=== PATIENT | female | born 1975 | race Caucasian/White ===

== ENCOUNTER 2016-08-15 14:13 | Emergency (ER) | payer BC ==
[2016-08-15 14:32] VITALS: BP 145/75
[2016-08-15] MEDS ORDERED: Ketorolac 60 MG/2 ML SDV IM ONE (14:51)
--- NOTE | 2016-08-15 14:54 | EDM.PDOC ---
ED HPI GENERAL MEDICAL PROBLEM - General Chief Complaint: Lower Extremity Injury/Pain Stated Complaint: RIGHT FOOT PAIN Time Seen by Provider: 08/15/16 14:20 Source of Information: Reports: Patient History Limitations: Reports: No Limitations - History of Present Illness INITIAL COMMENTS - FREE TEXT/NARRATIVE: The patient is a 40-year-old female who presents to the ED complaining of right lateral foot pain with swelling. Patient states last night when she went to bed she had some pain to this area with no known precipitating factors. States she felt like her toes needed to be cracked. Throughout the evening the pain increased. This morning the pain has worsened to the point where she has difficulty weightbearing. Swelling noted to the dorsal aspect of the foot with increased pain on palpation. Again there has been no known precipitating factors. She's had similar symptoms in the past approximately 8 years ago and 12 years ago. Symptoms resolved on their own accord with minimal treatment. She denies any history of gout, increased red meat consumption, increased alcohol consumption, or other pertinent history. She has no prior history of injuring affected foot. 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: Reports: Other (see below) (none stated) Right Feet Pain Score (Numeric/FACES): 4 - Related Data Allergies Allergy/AdvReac Type Severity Reaction Status Date / Time No Known Allergies Allergy Verified 08/15/16 14:29 Home Meds: Home Meds Docusate Sodium [Dulcolax Stool Softener] 1 tab PO DAILY 01/02/16 [History] Hydrochlorothiazide 1 tab PO DAILY 01/02/16 [History] Lisinopril 1 tab PO DAILY 01/02/16 [History] Omeprazole 40 mg PO DAILY 01/02/16 [History] buPROPion HCl [Wellbutrin Xl] 1 tab PO DAILY 01/02/16 [History] metFORMIN HCl [Metformin HCl] 1 tab PO BID 01/02/16 [History] Past Medical History Cardiovascular History: Reports: High Cholesterol, Hypertension Gastrointestinal History: Reports: GERD Endocrine/Metabolic History: Reports: Diabetes, Type II Social & Family History - Tobacco Use Smoking Status *Q: Never Smoker - Caffeine Use Caffeine Use: Reports: Soda - Recreational Drug Use Recreational Drug Use: No Review of Systems - Review of Systems Review Of Systems: See Below Constitutional: Reports: No Symptoms Respiratory: Reports: No Symptoms Cardiovascular: Reports: No Symptoms Neurological: Reports: Difficulty Walking (secondary to right foot pain). Denies: Numbness, Tingling Trauma Exam - Physical Exam Exam: See Below Exam Limited By: No Limitations General Appearance: Reports: Alert, WD/WN, No Apparent Distress Ears: Reports: Hearing Grossly Normal Nose: Reports: Normal Inspection Throat/Mouth: Reports: Normal Voice, No Airway Compromise Neck: Reports: Normal Inspection Respiratory Exam: Reports: No Respiratory Distress, Lungs Clear, Normal Breath Sounds Cardiovascular: Reports: Normal Peripheral Pulses, Regular Rate, Rhythm Extremities: Other (mild swelling noted to the dorsal aspect of the right foot. Pain with palpation of the 4th and 5th metatarsal. Pin point pain noted to the sole of the foot along 4th and 5th metatarsal. No sensory/motor deficits noted. DP/PT pulses intact equal bilaterally. ) Neurologic: Reports: No Motor/Sensory Deficits, Alert, Normal Mood/Affect, Oriented x 3 Skin: Reports: Normal Color, Warm/Dry Course - Vital Signs Last Recorded V/S: Last Vital Signs Temp 98.1 F 08/15/16 14:25 Pulse 99 08/15/16 14:25 Resp 16 08/15/16 14:25 BP 145/75 H 08/15/16 14:32 Pulse Ox 100 08/15/16 14:25 - Orders/Labs/Meds Orders: Active Orders 24 hr Category Date Time Status Foot Comp Min 3V Rt [CR] Stat Exams 08/15/16 14:51 Taken DME for Discharge [COMM] Stat Oth 08/15/16 16:47 Ordered Meds: Medications Discontinued Medications Generic Name Dose Route Start Last Admin Trade Name Yao PRN Reason Stop Dose Admin Ketorolac Tromethamine 60 mg 08/15/16 14:51 08/15/16 15:06 Toradol IM 08/15/16 14:52 60 mg ONETIME ONE Administration - Radiology Interpretation Free Text/Narrative:: X-ray reviewed with Dr. Villalobos no acute bony abnormalities noted. Will discharge home with instructions, crutches, and paul wrap. Departure - Departure Time of Disposition: 16:47 Disposition: Home, Self-Care 01 Condition: good Clinical Impression: Sprain of foot, right Qualifiers: Encounter type: initial encounter Qualified Code(s): S93.601A - Unspecified sprain of right foot, initial encounter - Discharge Information Instructions: Foot Sprain Referrals: Sarah Ivy PA-C [Primary Care Provider] - Michael Grossman MD [Physician] - Bran Bustillos MD [Physician] - Forms: ED Department Discharge Additional Instructions: NO acute bony abnormalities noted on x-ray of the foot. Will have you utilize crutches for the next 3 to5 days. No weightbearing for the first three days advancing as tolerated. Elevate when able to reduce swelling and pain. Utilize ice to the affected area 4-6 times daily, 20 minutes in duration, do not apply ice to the skin. Utilize Tylenol and ibuprofen and alternate fashion for pain. Refrain from any activities that cause worsening pain. Followup with orthopedic surgeon or optometry assistant of your choice if symptoms are not dressing improved over the next 7-10 days. Return to the ED as needed for any new or worsening symptoms. - My Orders Last 24 Hours: My Active Orders 08/15/16 14:51 Foot Comp Min 3V Rt [CR] Stat 08/15/16 16:47 DME for Discharge [COMM] Stat - Assessment/Plan Last 24 Hours: My Active Orders 08/15/16 14:51 Foot Comp Min 3V Rt [CR] Stat 08/15/16 16:47 DME for Discharge [COMM] Stat
--- NOTE | 2016-08-17 07:37 | CR ---
Right foot: Four views of the right foot were obtained. Comparison: No previous foot study. Plantar spur is seen. Minimal spur noted at the attachment of the Achilles tendon to the calcaneus. Minimal irregularity is seen within the base of the proximal phalanx of the fifth digit. This is most likely projectional but please correlate that patient has no symptoms of fracture to this digit. No additional bony abnormality is seen other than small bony density off the medial malleolus compatible with old injury. Impression: 1. Findings as described above. Diagnostic code #3
== END 2016-08-15 17:05 | disposition home or self-care (01) ==
LOC: JD.ED 14:13
DX: S93.601A Unspecified sprain of right foot, initial encounter (principal); Z79.899 Other long term (current) drug therapy; X58.XXXA Exposure to other specified factors, initial encounter
CPT/HCPCS: 73630; 96372; 99284; J1885; 99283

== ENCOUNTER → 2017-05-21 | Day surgery (SDC) | payer BC ==
[~2017-05-21] MED LIST: Acetaminophen/HYDROcodone 325-5 MG Tab PO ONE; Ketorolac 30 MG/ML SDV IVPUSH PRN; Lactated Ringers 1,000 ML IV SCH; Lactated Ringers 1,000 ML ONE; Lidocaine 1% 4 ML ONE; Lidocaine 1% 50 ML MDV ONE; Lidocaine 1% with EPINEPHrine 1:100,000 20 ML MDV ONE; Lidocaine 1%/Sod Bicarbonate in NS 8.4% 1 ML Syringe IDERM PRN; Midazolam 1 MG/ML 2 ML SDV ONE; Ondansetron 4 MG/2 ML SDV ONE; Propofol 200 MG/20 ML SDV ONE; Sodium Chloride 0.9% 10 ML Syringe FLUSH PRN; fentaNYL 100 MCG/2 ML SDV ONE
--- NOTE | 2017-05-21 10:15 | PCM.PREANE ---
Preanesthetic Assessment - Anesthesia/Transfusion/Family Hx Anesthesia History: Prior Anesthesia Without Reaction Family History of Anesthesia Reaction: Yes (dad slow wake up) Transfusion History: No Prior Transfusion(s) - Review of Systems General: No Symptoms Pulmonary: No Symptoms Cardiovascular: No Symptoms Gastrointestinal: No Symptoms Neurological: No Symptoms Other: Reports: Diabetes - Physical Assessment NPO Status Date: 05/20/17 NPO Status Time: 00:00 Pulse: 75 O2 Sat by Pulse Oximetry: 97 Respiratory Rate: 16 Blood Pressure: 149/87 Temperature: 37.3 C Height: 1.65 m Weight: 114.7 kg ASA Class: 2 Mental Status: Alert & Oriented x3 Airway Class: Mallampati = 1 Dentition: Reports: Normal Dentition Thyro-Mental Finger Breadths: 2 Mouth Opening Finger Breadths: 3 ROM/Head Extension: Full Lungs: Clear to Auscultation, Normal Respiratory Effort Cardiovascular: Regular Rate, Regular Rhythm, No Murmurs - Lab Values: on chart - Allergies Allergies/Adverse Reactions: Allergies Allergy/AdvReac Type Severity Reaction Status Date / Time No Known Allergies Allergy Verified 08/15/16 14:29 - Blood Blood Available: No Product(s) Available: None - Anesthesia Plan Pre-Op Medication Ordered: None - Acknowledgements Anesthesia Type Planned: General Anesthesia Pt an Appropriate Candidate for the Planned Anesthesia: Yes Alternatives and Risks of Anesthesia Discussed w Pt/Guardian: Yes Pt/Guardian Understands and Agrees with Anesthesia Plan: Yes PreAnesthesia Questionnaire Cardiovascular History: Reports: High Cholesterol, Hypertension Gastrointestinal History: Reports: GERD Endocrine/Metabolic History: Reports: Diabetes, Type II - SUBSTANCE USE Smoking Status *Q: Never Smoker Tobacco Use Within Last Twelve Months: No Second Hand Smoke Exposure: No Days Per Week of Alcohol Use: 0 Number of Drinks Per Day: 0 Total Drinks Per Week: 0 Recreational Drug Use History: No - HOME MEDS Home Medications: Home Meds Docusate Sodium [Dulcolax Stool Softener] 1 tab PO DAILY 01/02/16 [History] Hydrochlorothiazide 1 tab PO DAILY 01/02/16 [History] Lisinopril 1 tab PO DAILY 01/02/16 [History] Omeprazole 40 mg PO DAILY 01/02/16 [History] buPROPion HCl [Wellbutrin Xl] 1 tab PO DAILY 01/02/16 [History] metFORMIN HCl [Metformin HCl] 1 tab PO BID 01/02/16 [History] - CURRENT (IN HOUSE) MEDS Current Meds: Current Medications Lactated Ringer's (Ringers, Lactated) 1,000 mls @ 125 mls/hr IV ASDIRECTED INDIRA Lidocaine/Sodium Bicarbonate (Buffered Lidocaine 1% In Ns 8.4%) 0.25 ml IDERM ONETIME PRN PRN Reason: Prior to IV Start Sodium Chloride (Saline Flush) 10 ml FLUSH ASDIRECTED PRN PRN Reason: Keep Vein Open
--- NOTE | 2017-05-21 12:35 | PCM.OPNOTE ---
- General Post-Op/Procedure Note Date of Surgery/Procedure: 05/21/17 Operative Procedure(s): left temporal artery bx. Pre Op Diagnosis: headache and elevated sed rate Post-Op Diagnosis: Same Anesthesia Technique: MAC Primary Surgeon: Stewart Carty EBL in mLs: 3 Complications: None Condition: Good
[2017-05-21] MEDS: fentaNYL 100 MCG/2 ML SDV IVPUSH ONE ×2 (12:40→13:25)
[2017-05-21 15:23] VITALS: BP 129/70
--- NOTE | 2017-05-24 11:56 | OR ---
DATE OF OPERATION: 05/21/2017 SURGEON: Stewart Carty MD PREOPERATIVE DIAGNOSIS: Elevated sedimentation rate and headache along the left. POSTOPERATIVE DIAGNOSIS: Elevated sedimentation rate and headache along the left. OPERATION PERFORMED: Left temporal artery biopsy done under IV sedation local anesthetic 1% Xylocaine without epinephrine. FINDINGS: Tortuous serpiginous temporal artery quite small on the left side. DESCRIPTION OF PROCEDURE: The patient taken to the operating room, placed in a supine position. The area in question on the left temporal area was Dopplered, hair was trimmed, and then it was cleansed with Betadine, draped off in a sterile fashion. 1% Xylocaine infiltrated in the skin over the temporal artery, and incision was made and carried down by sharp dissection through the fat, through the subcuticular tissue to the vein. The vein was identified. Under the vein was a temporal artery. The vein was taken down exposing the serpiginous temporal artery. This was dissected out and proximal and distal were clamped and cut and tied off. It was sent to pathology for analysis. The subcuticular tissue was then closed with interrupted 3-0 Vicryl suture and the skin with a running subdermal 4-0 Dexon suture. Steri-Strips sterile dressing placed. ESTIMATED BLOOD LOSS: 3 mL. ANESTHESIA: MMODAL /[id number]
== END | disposition home or self-care (01) ==
LOC: JD.SDS 09:22
PROVIDERS: ATTEND Surgery
DX: R70.0 Elevated erythrocyte sedimentation rate (principal); R51 Headache; D50.9 Iron deficiency anemia, unspecified; Z79.899 Other long term (current) drug therapy
CPT/HCPCS: 37609; 82962; A9270; J1885; J2250; J2405; J3010; J7120; J2704

== ENCOUNTER 2020-01-09 01:02 | Emergency (ER) | payer BC ==
[2020-01-09 01:45] VITALS: BP 150/81; PULSE 82
[2020-01-09] MEDS ORDERED: FLU VACC QS2020-21(6MOS UP)/PF 60 MCG/0.5 ML SYRINGE IM ONE (02:15)
[2020-01-09] MEDS ORDERED: Bupivacaine 0.5% 10 ML SDV INJECT ONE ×2 (02:36→04:21)
[2020-01-09] MEDS ORDERED: Lidocaine 1% with EPINEPHrine 1:100,000 20 ML MDV INJECT ONE ×2 (02:36→04:21)
--- NOTE | 2020-01-09 02:40 | EDM.PDOC ---
ED HPI GENERAL MEDICAL PROBLEM - General Chief Complaint: Genitourinary Problem Stated Complaint: POSS HEMROIDS Time Seen by Provider: 01/09/20 01:40 Source of Information: Reports: Patient History Limitations: Reports: No Limitations - History of Present Illness INITIAL COMMENTS - FREE TEXT/NARRATIVE: There was a delay in evaluating this patient due to a medical alert on another patient. Mrs. Israel is a pleasant 44-year-old woman who now presents the ED with a complaint of progressively worsening anal pain over the past 2 weeks. She states that she has tried Epson salts sitz baths, Preparation H, and [id number] analgesics, without significant relief. No recent fever or rectal bleeding. The patient states that she had similar symptoms about 4 years ago. Her doctor thought that she had an internal hemorrhoid, and she was taken to the operating room, however, her surgeon did not find an internal hemorrhoid. She states that they apparently did a biopsy, which returned negative. The cause of her pain was not found, but it eventually resolved. Here in the ED, the patient's initial BP is found to be modestly elevated at 150/81, otherwise, she is hemodynamically stable, afebrile, saturating 97% on room air. The patient states that she started her menses yesterday. Other than her anal pain, the patient denies having a recent fever, chills, sore throat, ear pain, nasal or sinus congestion, cough, dyspnea, chest pain, palpitations, nausea, vomiting, constipation, diarrhea, abdominal pain, urinary symptoms, recent weight gain or weight loss, recent bloody bowel movements or black bowel movements, recent joint aches, headaches, or rashes. The patient's PCP is JAIRO Marinelli. Rectal Pain Score (Numeric/FACES): 8 - Related Data Allergies Allergy/AdvReac Type Severity Reaction Status Date / Time No Known Allergies Allergy Verified 01/09/20 01:45 Home Meds: Home Meds Hydrochlorothiazide 1 tab PO DAILY 01/02/16 [History] Lisinopril 1 tab PO DAILY 01/02/16 [History] Omeprazole 40 mg PO DAILY 01/02/16 [History] buPROPion HCL [Wellbutrin Xl] 1 tab PO DAILY 01/02/16 [History] metFORMIN HCl [Metformin HCl] 1,000 tab PO BID 01/02/16 [History] Celecoxib [CeleBREX] 100 mg PO DAILY 08/20/17 [History] Acetaminophen/oxyCODONE [Percocet 325-5 MG] 1 - 2 tab PO Q6H PRN #24 tab 01/09/20 [Rx] Levofloxacin [Levaquin] 1 tab PO QAM #5 tablet 01/09/20 [Rx] metroNIDAZOLE [Metronidazole] 1 tab PO Q8H #15 tablet 01/09/20 [Rx] Past Medical History HEENT History: Reports: Impaired Vision Cardiovascular History: Reports: High Cholesterol, Hypertension Gastrointestinal History: Reports: GERD, Hemorrhoids, Hiatal Hernia 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) (Ovarian cysts) Psychiatric History: Reports: Anxiety, Depression Endocrine/Metabolic History: Reports: Diabetes, Type II, Obesity/BMI 30+ - Past Surgical History HEENT Surgical History: Reports: Oral Surgery (dental extractions) Female Surgical History: Reports: Other (See Below) (Ovarian cystectomy x 1) Musculoskeletal Surgical History: Reports: Arthroscopic Knee (left) Dermatological Surgical History: Reports: Other (See Below) (Lipoma excised off left neck) Social & Family History - Tobacco Use Smoking Status *Q: Never Smoker Tobacco Use Within Last Twelve Months: Smokeless Tobacco (Quit chewing around 1994) - Caffeine Use Caffeine Use: Reports: Coffee - Alcohol Use Alcohol Use History: Yes Alcohol Use Frequency: Rarely - Recreational Drug Use Recreational Drug Use: No - Living Situation & Occupation Living situation: Reports: , with Spouse, with Family (1 child) 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 ED EXAM, GI/ABD - Physical Exam Exam: See Below Exam Limited By: No Limitations General Appearance: Alert, WD/WN, Anxious, Moderate Distress (Very uncomfortable) Rectal (Female) Exam: Other (Anal pain even with the buttocks in order to inspect the anus. There is a swollen right posterior hemorrhoid that is firm and tender to palpation. Unclear at this time if it is thrombosed or just inflamed. Further examination, such as a LYNDA, not possible at this time due to pain and tenderness.) ED ABDOMINAL/GI PROCEDURES - Additional/Other Procedure(s) Procedure(s) (Free Text): Procedure: Incision and drainage of a hemorrhoidal abscess. Indication: Treatment of infection, relief of pain. Anesthesia: 10 ml 50-50 admixture of bupivacaine 0.5% without epinephrine and lidocaine 1% with epinephrine, injected locally. A Betadine swab was used to cleanse the hemorrhoid, then 10 mL of the bupivacaine/lidocaine admixture was injected locally. During infiltration of the lidocaine, a great deal of pus emanated from a spontaneous hole in the hemorrhoid. Some areas of the hemorrhoid blanched, others did not. The patient had incomplete anesthesia. A #10 blade scalpel was then used to make an approximately half centimeter incision in the surface of the hemorrhoid, after which pickups were used along with the scalpel to create a rectangular hole in the hemorrhoid. No significant additional pus was expressed. The hemorrhoid was probed with a cotton-tipped swab, finding no loculations or additional pus, however, a tract was discovered that was exquisitely tender, therefore I was unable to determine the depth of the tract. I attempted to pack the wound with iodoform, without success; the patient simply did not tolerate it. Course - Vital Signs Last Recorded V/S: Last Vital Signs Temp 36.3 C 01/09/20 01:39 Pulse 82 01/09/20 01:39 Resp 18 01/09/20 01:39 BP 150/81 H 01/09/20 01:39 Pulse Ox 97 01/09/20 01:39 - Orders/Labs/Meds Orders: Active Orders 24 hr Category Date Time Status Influenza Vaccine Charge [RC] .DISCHARGE Care 01/09/20 01:54 Active Lidocaine 2% [Xylocaine 2% Jelly] Med 01/09/20 05:03 Active 1 ml TOP Q4H PRN Medication Orders Lidocaine HCl (Xylocaine 2% Jelly) 1 ml TOP Q4H PRN PRN Reason: Pain Meds: Medications Generic Name Dose Route Start Last Admin Trade Name Freq PRN Reason Stop Dose Admin Lidocaine HCl 1 ml 01/09/20 05:03 Xylocaine 2% Jelly TOP Q4H PRN Pain Discontinued Medications Generic Name Dose Route Start Last Admin Trade Name Freq PRN Reason Stop Dose Admin Bupivacaine HCl 10 ml 01/09/20 02:36 01/09/20 02:53 Sensorcaine-Mpf 0.5% INJECT 01/09/20 02:37 10 ml ONETIME ONE Administration Bupivacaine HCl 10 ml 01/09/20 04:21 01/09/20 04:52 Sensorcaine-Mpf 0.5% INJECT 01/09/20 04:22 10 ml ONETIME ONE Administration Influenza Virus Vaccine 60 mcg 01/09/20 02:15 01/09/20 02:52 Fluzone Quad [id number] Syringe IM 01/09/20 02:16 60 mcg .ONCE ONE Administration Levofloxacin 500 mg 01/09/20 04:24 Levaquin PO 01/09/20 04:25 ONETIME STA Lidocaine HCl Confirm 01/09/20 05:17 Xylocaine 2% Jelly Administered 01/09/20 05:18 Dose 10 ml .ROUTE .STK-MED ONE Lidocaine/Epinephrine 20 ml 01/09/20 02:36 01/09/20 02:53 Xylocaine 1% With Epinephrine 1:100,000 INJECT 01/09/20 02:37 20 ml ONETIME ONE Administration Lidocaine/Epinephrine 20 ml 01/09/20 04:21 01/09/20 04:52 Xylocaine 1% With Epinephrine 1:100,000 INJECT 01/09/20 04:22 20 ml ONETIME ONE Administration Lorazepam 1 mg 01/09/20 03:37 01/09/20 03:41 Ativan PO 01/09/20 03:38 1 mg ONETIME ONE Administration Metronidazole 500 mg 01/09/20 04:25 Flagyl PO 01/09/20 04:26 ONETIME STA Oxycodone/Acetaminophen 2 tab 01/09/20 05:09 Percocet 325-5 Mg PO 01/09/20 05:10 ONETIME ONE - Re-Assessments/Exams Free Text/Narrative Re-Assessment/Exam: 01/09/20 02:37 As above, the patient has been experiencing progressively worsening anal pain for the past 2 weeks, despite treatment with Epson salt sitz baths, Preparation H, and [id number]-[id number] analgesics. On examination, she appears to have a thrombosed right posterior hemorrhoid. I offered to anesthetize and buddy it, and the patient agreed. 01/09/20 04:08 I was preparing to locally anesthetize the patient's hemorrhoid by swabbing it with Betadine, however, at that time I noticed that the hemorrhoid was spontaneously draining pus, which it was not doing earlier. I therefore stopped and did not inject any local anesthetic. I will need to discuss this with the Surgeon. 01/09/20 04:[address] Melendrez at 04:10. Ordinarily, he would have liked to take the patient to the operating room, however, we do not have any beds available at this facility, therefore he cannot. He recommended that we proceed with local anesthesia, then essentially cut the top off of the hemorrhoid to create a sizable hole, allowing it to thoroughly drain and not close up immedi ately. If I can pack it, that would be even better. The patient can then be discharged home with Percocet, ciprofloxacin, and Flagyl. She should take MiraLAX to keep her stools soft. She should sitz baths with warm water 3 times a day. We can give her some lidocaine jelly that she can apply topically. She can then follow-up with him in the clinic. 01/09/20 04:49 After applying some Betadine to the area, I injected 10 mL of a 50-50 admixture of bupivacaine 0.5% without epinephrine and lidocaine 1% with epinephrine, locally. Despite this, the anesthesia was less than ideal. The hemorrhoid was lanced, and a rectangular hole incised in the surface. I then probed the wound to make sure there were no loculations or additional pus. I discovered a tract that was exquisitely tender to probe. I attempted to place packing, without success. The patient tolerated the procedure as well as could be expected. I suspect that the patient has a perirectal abscess that extended to a hemorrh oid. She will require surgical exploration. She will receive her first dose of levofloxacin and metronidazole here in the ED. I will discharge her home with a cup of lidocaine jelly and prescriptions for Percocet, levofloxacin, and metronidazole. She will be instructed to take MiraLAX to keep her stools soft, perform sitz baths with warm water 3 times a day, apply lidocaine jelly as needed, and then follow-up with Dr. Melendrez this week. The patient will be given an influenza vaccine prior to discharge. 01/09/20 05:28 I wrote a note for the patient to be off work until Wednesday. Departure - Departure Time of Disposition: 04:54 Disposition: Home, Self-Care 01 Condition: Good Clinical Impression: Perirectal abscess - Discharge Information *PRESCRIPTION DRUG MONITORING PROGRAM REVIEWED*: Not Applicable *COPY OF PRESCRIPTION DRUG MONITORING REPORT IN PATIENT MELECIO: Not Applicable Prescriptions: Levofloxacin [Levaquin] 1 tab PO QAM #5 tablet metroNIDAZOLE [Metronidazole] 1 tab PO Q8H #15 tablet Acetaminophen/oxyCODONE [Percocet 325-5 MG] 1 - 2 tab PO Q6H PRN #24 tab PRN Reason: Pain (Severe 7-10) Instructions: Anorectal Abscess Referrals: Sarah Ivy PA-C [Primary Care Provider] - Beulah Melendrez MD [Physician] - Forms: ED Department Discharge, ED Return to Work/School Form Additional Instructions: You were seen in the emergency room for progressively worsening anal pain over the past 2 weeks. On examination, you were found to have a tender hemorrhoid which spontaneously ruptured, draining pus. The hemorrhoid was opened up, allowing it to drain fully. When probed, a tract was found, indicating that you are most likely suffering from a perirectal abscess. You have been started on the antibiotics metronidazole (Flagyl) and levofloxacin (Levaquin), and the opioid pain reliever Percocet. You have been given prescriptions for all 3 medicines. Take 1 tablet of metronidazole every 8 hours, starting at 1:00 this afternoon, 01/09/2020. Take 1 tablet of levofloxacin every morning, starting tomorrow morning, 01/10/2020. You may take 1 to 2 tablets of Percocet up to every 6 hours, as needed for pain. If you take Percocet, do not drive or operate heavy machinery for 12 hours afterwards. Percocet may cause constipation, so it is important that you take MiraLAX. You have also been given a cup of 2% lidocaine jelly. You may apply a small dab topically to the hemorrhoid, as needed for discomfort. We recommend that you do sitz bathe in warm water 3 times a day. Follow-up with the Surgeon Dr. Beulah Melendrez this week, at the next available appointment. If any other problems, please do not hesitate to return to the ER. *You were given an influenza vaccine during your ER visit.* Sepsis Event Note (ED) - Evaluation Sepsis Screening Result: No Definite Risk - Focused Exam Vital Signs: Vital Signs Temp Pulse Resp BP Pulse Ox 10/13/20 01:39 36.3 C 82 18 150/81 H 97 - My Orders Last 24 Hours: My Active Orders 01/09/20 01:54 Influenza Vaccine Charge [RC] .DISCHARGE 01/09/20 05:03 Lidocaine 2% [Xylocaine 2% Jelly] 1 ml TOP Q4H PRN - Assessment/Plan Last 24 Hours: My Active Orders 01/09/20 01:54 Influenza Vaccine Charge [RC] .DISCHARGE 01/09/20 05:03 Lidocaine 2% [Xylocaine 2% Jelly] 1 ml TOP Q4H PRN
[2020-01-09] MEDS ORDERED: LORazepam 1 MG Tab PO ONE (03:37)
[2020-01-09] MEDS ORDERED: Levofloxacin 500 MG Tab PO STA (04:24)
[2020-01-09] MEDS ORDERED: metroNIDAZOLE 500 MG Tab PO STA (04:25)
[2020-01-09] MEDS ORDERED: Lidocaine 2% Jelly 5 ML Tube TOP PRN (05:03)
[2020-01-09] MEDS ORDERED: Acetaminophen/oxyCODONE 325-5 MG Tab PO ONE (05:09)
[2020-01-09] MEDS ORDERED: Lidocaine 2% Jelly 10 ML Urojet ONE (05:17)
== END 2020-01-09 06:20 | disposition home or self-care (01) ==
LOC: JD.ED 01:02
DX: K61.1 Rectal abscess (principal); I10 Essential (primary) hypertension; E11.9 Type 2 diabetes mellitus without complications; E66.9 Obesity, unspecified; F41.9 Anxiety disorder, unspecified; F32.9 Major depressive disorder, single episode, unspecified; K21.9 Gastro-esophageal reflux disease without esophagitis; Z23 Encounter for immunization; Z79.84 Long term (current) use of oral hypoglycemic drugs; Z79.899 Other long term (current) drug therapy; Z87.891 Personal history of nicotine dependence
CPT/HCPCS: 46040; 90471; 90686; 99283; A9270; J3490; G0008

== ENCOUNTER 2022-02-03 13:53 | Emergency (ER) | payer BC ==
[2022-02-03] MEDS ORDERED: Lactated Ringers 1,000 ML IV ONE ×2 (14:18→19:18)
[2022-02-03] MEDS ORDERED: Morphine 4 MG/ML Syringe IVPUSH ONE (14:18)
[2022-02-03] MEDS ORDERED: Ondansetron 4 MG in Sodium Chloride 0.9% 50 ML IV ONE (14:22)
[2022-02-03] MEDS ORDERED: Ondansetron 4 MG/2 ML SDV IVPUSH ONE ×4 (14:51→22:15)
[2022-02-03 15:24] LABS: ESTIMATED GFR 56 mL/min (>60)
[2022-02-03] MEDS ORDERED: Ketamine 500 mg/10 ML MDV IV ONE (16:09)
[2022-02-03] MEDS ORDERED: Propofol 200 MG/20 ML SDV IVPUSH ONE (16:09)
[2022-02-03] MEDS ORDERED: Potassium Chloride 20 MEQ Tab.ER PO ONE (16:16)
[2022-02-03] MEDS ORDERED: Propofol 200 MG/20 ML SDV ONE (16:58)
[2022-02-03] MEDS ORDERED: levETIRAcetam 2,000 MG in Sodium Chloride 0.9% 100 ML IV ONE (17:27)
[2022-02-03 18:34] VITALS: PULSE 98
[2022-02-03] MEDS ORDERED: Sodium Chloride 0.9% 1,000 ML IV ONE (18:40)
[2022-02-03] MEDS ORDERED: HYDROmorphone 0.5 MG/0.5 ML Syringe IVPUSH ONE (19:18)
[2022-02-03] MEDS ORDERED: Ondansetron 4 MG/2 ML SDV ONE (22:02)
[2022-02-03] MEDS ORDERED: HYDROmorphone 0.5 MG/0.5 ML Syringe ONE (22:03)
[2022-02-04 02:13] VITALS: BP 136/89
== END 2022-02-03 22:15 ==
LOC: SUPCPDRO 13:53 → JD.ED 13:53
DX: S43.024A Posterior dislocation of right humerus, initial encounter (principal); R56.9 Unspecified convulsions; I10 Essential (primary) hypertension; K21.9 Gastro-esophageal reflux disease without esophagitis; E11.9 Type 2 diabetes mellitus without complications; E66.9 Obesity, unspecified; Z68.38 Body mass index [BMI] 38.0-38.9, adult; Z79.84 Long term (current) use of oral hypoglycemic drugs; Z79.899 Other long term (current) drug therapy
CPT/HCPCS: 23650; 36415; 70450; 73030; 80053; 82553; 83605; 83690; 84484; 85025; 93005; 96361; 96374; 96375; 96376; 99285; A9270; J1170; J1953; J2270; J2405; J2704; J3490; J7030; J7120; 36410

== ENCOUNTER 2022-10-31 19:57 | Emergency (ER) | payer BC ==
[2022-10-31 20:25] VITALS: PULSE 67
[2022-10-31 20:29] LABS: BASOPHILS ABSOLUTE AUTO 0.03 K/mm3 (0.01-0.08); BASOPHILS PERCENT AUTO 0.6 % (0.1-1.2); EOSINOPHILS ABSOLUTE AUTO 0.14 K/mm3 (0.04-0.36); EOSINOPHILS PERCENT AUTO 2.9 (0.7-5.8); HEMATOCRIT 35.2 % (34.1-44.9); HEMOGLOBIN 11.7 gm/dl (11.2-15.7); LYMPHOCYTES PERCENT AUTO 40.7 % (19.3-51.7); MEAN CORPUSCULAR HEMOGLOBIN 30.7 pg (25.6-32.2); MEAN CORPUSCULAR HGB CONC 33.2 g/dl (32.2-35.5); MEAN CORPUSCULAR VOLUME 92.4 fl (79.4-94.8); MEAN PLATELET VOLUME 11.1 fl (9.4-12.3); MONOCYTES ABSOLUTE AUTO 0.48 K/mm3 (0.24-0.36); MONOCYTES PERCENT AUTO 9.8 % (4.7-12.5); NEUTROPHILS ABSOLUTE AUTO 2.26 K/mm3 (1.56-6.13); PLATELET COUNT,PLT 232 K/mm3 (182-369); RED BLOOD CELL COUNT 3.81 M/mm3 (3.98-5.22); WHITE BLOOD CELL COUNT,WBC 4.91 K/mm3 (3.98-10.04)
[2022-10-31 20:58] LABS: A/G RATIO 0.8 (1-2); ANION GAP 13.1 (5-15); BILIRUBIN TOTAL 0.4 mg/dL (0.2-1.0); BUN/CREATININE RATIO 10.9 (14-18); CALCIUM 8.7 mg/dL (8.5-10.1); CREATININE 1.1 mg/dL (0.55-1.02); EST CRCL DRUG DOSING (CG) 55.67 mL/min; POTASSIUM,K 3.1 mEq/L (3.5-5.1); PROTEIN TOTAL,TP 6.7 g/dl (6.4-8.2); T4 FREE 1.11 ng/dL (0.76-1.46); TSH 1.429 uIU/mL (0.358-3.74)
[2022-10-31] MEDS ORDERED: Potassium Chloride 20 MEQ Tab.ER PO ONE (21:17)
[2022-10-31] MEDS ORDERED: Apixaban 5 MG Tab PO ONE ×2 (22:06)
[2022-10-31] MEDS ORDERED: Acetaminophen 325 MG Tab PO ONE (22:10)
[2022-11-01 00:59] VITALS: BP 104/73
== END 2022-10-31 23:22 | disposition home or self-care (01) ==
LOC: JD.ED 19:57
DX: I48.0 Paroxysmal atrial fibrillation (principal); E11.9 Type 2 diabetes mellitus without complications; E66.9 Obesity, unspecified; E78.00 Pure hypercholesterolemia, unspecified; K21.9 Gastro-esophageal reflux disease without esophagitis; I10 Essential (primary) hypertension; Z86.16 Personal history of COVID-19; Z79.01 Long term (current) use of anticoagulants; Z79.84 Long term (current) use of oral hypoglycemic drugs; Z79.899 Other long term (current) drug therapy; Z68.29 Body mass index [BMI] 29.0-29.9, adult
CPT/HCPCS: 36415; 71046; 80053; 83735; 83880; 84439; 84443; 84484; 85025; 93005; 93246; 99285; A9270; 93010; 99284

== ENCOUNTER 2024-02-27 20:24 | Emergency (ER) | payer BC ==
[2024-02-27] MEDS: Lactated Ringers 1,000 ML IV ONE (20:59)
[2024-02-27] MEDS: Metoclopramide 10 MG/2 ML SDV IVPUSH ONE (21:08)
[2024-02-27] MEDS: diphenhydrAMINE 50 MG/ML SDV IVPUSH ONE (21:08)
[2024-02-27 21:18] LABS: BASOPHILS PERCENT AUTO 0.2 % (0.0-1.0); EOSINOPHILS PERCENT AUTO 0.2 % (0.0-6.0); HEMOGLOBIN 13.2 gm/dl (12.0-16.0); IMMATURE GRAN ABSOLUTE AUTO 0.05 K/mm3 (0.00-0.05); IMMATURE GRAN PERCENT AUTO 0.4 % (0.0-0.4); LYMPHOCYTES ABSOLUTE AUTO 0.7 K/mm3 (1.0-4.8); LYMPHOCYTES PERCENT AUTO 5.4 % (24.0-44.0); MEAN CORPUSCULAR HEMOGLOBIN 30.1 pg (28.0-32.0); MEAN CORPUSCULAR HGB CONC 33.8 g/dl (32.0-36.0); MEAN PLATELET VOLUME 10.4 fl (9.4-12.3); MONOCYTES ABSOLUTE AUTO 0.7 K/mm3 (0.0-0.8); MONOCYTES PERCENT AUTO 5.4 % (0.0-8.0); NEUTROPHILS ABSOLUTE AUTO 10.7 K/mm3 (1.8-7.7); NEUTROPHILS PERCENT AUTO 88.4 % (41.0-71.0); PLATELET COUNT,PLT 365 K/mm3 (150-400); RED BLOOD CELL COUNT 4.38 M/mm3 (4.10-5.30); WHITE BLOOD CELL COUNT,WBC 12.09 K/mm3 (3.9-11.3)
[2024-02-27 21:38] LABS: A/G RATIO 0.9 (1-2); ALBUMIN 3.6 g/dl (3.4-5.0); ANION GAP 14.7 (5-15); BILIRUBIN TOTAL 1.2 mg/dL (0.2-1.0); C-REACTIVE PROTEIN 3.75 mg/dL (<0.30); CALCIUM 9.4 mg/dL (8.5-10.1); CREATININE 1.1 mg/dL (0.55-1.02); EST CRCL DRUG DOSING (CG) 55.06 mL/min; POTASSIUM,K 2.7 mEq/L (3.5-5.1); PROTEIN TOTAL,TP 7.8 g/dl (6.4-8.2)
[2024-02-27 21:40] LABS: LACTIC ACID 1.7 mmol/L (0.4-2.0)
[2024-02-27] MEDS: Lidocaine 2% 11 ML Jelly Filled Syringe MUCMEM ONE (21:50)
[2024-02-28] MEDS: Lidocaine 1% 10 ML MDV INJECT ONE (00:09)
[2024-02-28 00:13] VITALS: BP 119/75; PULSE 112
== END 2024-02-28 00:12 | disposition home or self-care (01) ==
LOC: JD.ED 20:24
DX: K59.01 Slow transit constipation (principal); I10 Essential (primary) hypertension; K21.9 Gastro-esophageal reflux disease without esophagitis; E11.9 Type 2 diabetes mellitus without complications; E66.9 Obesity, unspecified; Z86.16 Personal history of COVID-19; Z79.84 Long term (current) use of oral hypoglycemic drugs; Z79.890 Hormone replacement therapy; Z79.899 Other long term (current) drug therapy; Z68.27 Body mass index [BMI] 27.0-27.9, adult
CPT/HCPCS: 36415; 74018; 80053; 83605; 83735; 85025; 86140; 96361; 96374; 96375; 99284; A9270; J1200; J2765; J7120

== ENCOUNTER 2024-03-29 15:40 | Emergency (ER) | payer BC ==
[2024-03-29 16:46] VITALS: BP 108/74; PULSE 77
== END 2024-03-29 16:47 | disposition home or self-care (01) ==
LOC: JD.ED 15:40
DX: M25.531 Pain in right wrist (principal); I10 Essential (primary) hypertension; E78.00 Pure hypercholesterolemia, unspecified; K21.9 Gastro-esophageal reflux disease without esophagitis; E11.9 Type 2 diabetes mellitus without complications; E66.9 Obesity, unspecified; Z86.16 Personal history of COVID-19; Z79.84 Long term (current) use of oral hypoglycemic drugs; Z79.899 Other long term (current) drug therapy; Z68.28 Body mass index [BMI] 28.0-28.9, adult
CPT/HCPCS: 73110-26-RT; 73110-RT; 99283

== ENCOUNTER 2024-07-06 08:36 | Day surgery (SDC) | payer BC ==
[~2024-07-06 08:36] MED LIST changes: +Acetaminophen 325 MG Tab PO ONE; -Acetaminophen/HYDROcodone 325-5 MG Tab PO ONE; -Ketorolac 30 MG/ML SDV IVPUSH PRN; -Lactated Ringers 1,000 ML IV SCH; -Lactated Ringers 1,000 ML ONE; -Lidocaine 1% 4 ML ONE; -Lidocaine 1% 50 ML MDV ONE; -Lidocaine 1% with EPINEPHrine 1:100,000 20 ML MDV ONE; -Lidocaine 1%/Sod Bicarbonate in NS 8.4% 1 ML Syringe IDERM PRN; -Midazolam 1 MG/ML 2 ML SDV ONE; -Ondansetron 4 MG/2 ML SDV ONE; +Pregabalin 25 MG Cap PO ONE; -Propofol 200 MG/20 ML SDV ONE; +Sodium Chloride 0.9% 10 ML Syringe FLUSH SCH; -fentaNYL 100 MCG/2 ML SDV ONE; +oxyCODONE ER 10 MG TAB.ER PO ONE
[2024-07-06] MEDS: Lactated Ringers 1,000 ML IV SCH (09:05)
[2024-07-06] MEDS: Acetaminophen 325 MG Tab PO ONE (09:30)
[2024-07-06] MEDS: oxyCODONE ER 10 MG TAB.ER PO ONE (09:31)
[2024-07-06] MEDS: Pregabalin 25 MG Cap PO ONE (09:31)
[2024-07-06] MEDS ORDERED: propofoL 500 MG/50 ML 50 ML ONE ×2 (09:33→10:39)
[2024-07-06] MEDS ORDERED: Midazolam 1 MG/ML 2 ML SDV ONE (09:33)
[2024-07-06] MEDS ORDERED: Ondansetron 4 MG/2 ML SDV ONE (09:38)
[2024-07-06] MEDS ORDERED: ceFAZolin 2 GM Vial ONE (09:51)
[2024-07-06] MEDS ORDERED: Phenylephrine 1% 10 MG/ML SDV ONE (09:57)
[2024-07-06] MEDS ORDERED: Lactated Ringers 1,000 ML ONE (10:15)
[2024-07-06] MEDS ORDERED: Ondansetron 4 MG/2 ML SDV IVPUSH PRN (10:47)
[2024-07-06] MEDS ORDERED: HYDROmorphone 0.5 MG/0.5 ML Syringe IVPUSH PRN (10:47)
[2024-07-06] MEDS ORDERED: fentaNYL 100 MCG/2 ML SDV IVPUSH PRN (10:47)
[2024-07-06] MEDS ORDERED: ePHEDrine 50 MG/ML SDV ONE (10:58)
[2024-07-06] MEDS ORDERED: Ketorolac 30 MG/ML SDV IVPUSH ONE (11:00)
[2024-07-06] MEDS: Morphine 8 MG, EPINEPHrine 0.3 MG, Cefuroxime 750 MG, Ketorolac 30 MG, Sodium Chloride ... PRN (11:10)
[2024-07-06] MEDS: Tranexamic Acid 1,000 MG/10 ML Vial ONE (11:11)
[2024-07-06] MEDS: VANCOmycin 1 GM SDV ONE (11:11)
[2024-07-06] MEDS: oxyCODONE 5 MG Tab PO ONE (12:19)
[2024-07-06 13:47] VITALS: BP 126/61; PULSE 77
== END 2024-07-06 14:47 | disposition home or self-care (01) ==
LOC: JD.SDS 08:36
PROVIDERS: ATTEND Orthopaedic Surgery
DX: M16.11 Unilateral primary osteoarthritis, right hip (principal); I10 Essential (primary) hypertension; E78.00 Pure hypercholesterolemia, unspecified; E11.9 Type 2 diabetes mellitus without complications; Z79.899 Other long term (current) drug therapy; Z88.8 Allergy status to other drugs, medicaments and biological substances
CPT/HCPCS: 0055T; 27130; 73501; 97110; 97116; 97161; A9270; C1713; C1776; J0171; J0690; J0697; J1885; J2250; J2272; J2371; J2405; J2704; J7120; J3490

== ENCOUNTER 2024-12-28 07:40 | Day surgery (SDC) | payer BC ==
[~2024-12-28 07:40] MED LIST changes: -Acetaminophen 325 MG Tab PO ONE; +Lactated Ringers 1,000 ML ONE; +Midazolam 1 MG/ML 2 ML SDV ONE; +Ondansetron 4 MG/2 ML SDV ONE; -Pregabalin 25 MG Cap PO ONE; -oxyCODONE ER 10 MG TAB.ER PO ONE; +propofoL 500 MG/50 ML 50 ML ONE
[2024-12-28] MEDS ORDERED: fentaNYL 100 MCG/2 ML SDV ONE (08:02)
[2024-12-28] MEDS: Lactated Ringers 1,000 ML IV SCH (08:15)
[2024-12-28] MEDS: oxyCODONE ER 10 MG TAB.ER PO SCH (08:31)
[2024-12-28] MEDS: Morphine 8 MG, EPINEPHrine 0.3 MG, Cefuroxime 750 MG, Ketorolac 30 MG, Sodium Chloride ... PRN (09:30)
[2024-12-28] MEDS ORDERED: ePHEDrine 50 MG/ML SDV ONE (10:38)
[2024-12-28] MEDS ORDERED: fentaNYL 100 MCG/2 ML SDV IVPUSH PRN (10:50)
[2024-12-28] MEDS ORDERED: Ondansetron 4 MG/2 ML SDV IVPUSH PRN (10:50)
[2024-12-28] MEDS ORDERED: Propofol 200 MG/20 ML SDV ONE (11:23)
[2024-12-28] MEDS ORDERED: Ketorolac 30 MG/ML SDV ONE (11:52)
[2024-12-28 14:34] VITALS: BP 117/73; PULSE 70
== END 2024-12-28 15:25 | disposition home or self-care (01) ==
LOC: JD.SDS 07:40
PROVIDERS: ATTEND Orthopaedic Surgery
DX: M16.12 Unilateral primary osteoarthritis, left hip (principal); I10 Essential (primary) hypertension; E11.9 Type 2 diabetes mellitus without complications; E78.00 Pure hypercholesterolemia, unspecified; I48.91 Unspecified atrial fibrillation; Z88.8 Allergy status to other drugs, medicaments and biological substances; Z79.82 Long term (current) use of aspirin; Z79.899 Other long term (current) drug therapy
CPT/HCPCS: 0055T; 27130; 73501; 97116; 97161; A9270; C1713; C1776; J0169; J0690; J0697; J1885; J2250; J2272; J2405; J2704; J3373; J7120; 01214; J3010; J3490